=== PATIENT | male | born 1950 | race Caucasian/White ===

== ENCOUNTER → 2019-12-20 | Outpatient (CLI) | payer OTHER ==
--- NOTE | 2019-12-23 14:22 | SLEEPCENT ---
DATE: 12/20/2019 ORDERED BY: Dr. Bernard Nocturnal polysomnography was performed for the titration of pressure therapy in this patient with obstructive sleep apnea syndrome, apnea-hypopnea index 25.8. For testing, a [employer] Simplus full face mask of medium size was used, 4 cm of water pressure were applied to the circuit and the lights were extinguished. Eight hours and 15 minutes of data were reviewed. There were 428 minutes of sleep identified. Sleep latency was normal at 12.5 minutes. REM latency was normal at 83 minutes. Sleep architecture was good with 4 REM cycles. Overall sleep efficiency was 87.9%. The electrocardiogram showed a sinus rhythm with occasional PVCs. Average heart rate was 46 beats per minute. Rate ranged 40-62. EEG showed normal waveforms for wake and sleep stages. No focal events were identified. Respiratory events were best palliated with CPAP at a pressure of +13 with some limb activity noted, particularly early in the study. Limb movement arousal index on this occasion was 9.1. IMPRESSION: Obstructive sleep apnea syndrome (G47.33). RECOMMENDATION: Nightly use of pressure therapy 13 cm of water. MTDD
== END ==
LOC: M SLEEP 20:00
PROVIDERS: ATTEND Internal Medicine
DX: G47.33 Obstructive sleep apnea (adult) (pediatric) (principal)

== ENCOUNTER → 2024-10-20 | Outpatient (CLI) | payer OTHER, MEDICARE | LOC: M WHC 10:50 | PROVIDERS: ATTEND Internal Medicine | DX: Z13.820 Encounter for screening for osteoporosis (principal); Z79.52 Long term (current) use of systemic steroids ==